=== PATIENT | female | born 1950 | race Caucasian/White ===

== ENCOUNTER → 2016-09-21 | Outpatient (CLI) | payer MEDICARE, BC ==
--- NOTE | 2016-09-21 10:48 | MM ---
Reason for exam: additional evaluation requested from prior study. Last mammogram was performed 1 year ago. History: Patient is postmenopausal and has history of breast cancer at age 60. Family history of breast cancer in maternal aunt. Lumpectomy of the left breast, July 2011. Chemotherapy, 2011. Radiation therapy of the left breast, 2011. Benign stereotactic core biopsy of the right breast, April 14, 2002. Benign stereotactic core biopsy of the right breast, June 26, 1998. Took estrogen for 6 years 6 months beginning at age 48. Took antineoplastic for 3 years. Physical Findings: Nurse did not find any significant physical abnormalities on exam. MG 3D Diag Mammo W/Cad HOMER Bilateral CC and MLO view(s) were taken. Prior study comparison: September 18, 2015, bilateral MG 3d diag mammo w/cad HOMER. September 03, 2014, bilateral MG diagnostic mammo w CAD HOMER. The breast tissue is heterogeneously dense. This may lower the sensitivity of mammography. Benign calcifications. Stable post lumpectomy changes in the left breast. No significant new findings when compared with previous films. These results were verbally communicated with the patient and result sheet given to the patient on 09/21/16. ASSESSMENT: Benign, BI-RAD 2 RECOMMENDATION: Follow-up diagnostic mammogram of both breasts in 1 year.
== END | disposition home or self-care (01) ==
LOC: RADMAMWWP 09:49
PROVIDERS: ATTEND Internal Medicine Hematology & Oncology
DX: Z08 Encounter for follow-up examination after completed treatment for malignant neoplasm (principal); Z85.3 Personal history of malignant neoplasm of breast
CPT/HCPCS: G0204; G0279

== ENCOUNTER → 2017-09-01 | Outpatient (CLI) | payer MEDICARE, BC ==
--- NOTE | 2017-09-01 10:12 | MM ---
Reason for exam: clinical finding. Last mammogram was performed 11 months ago. History: Patient is postmenopausal and has history of breast cancer at age 60. Family history of breast cancer in maternal aunt. Lumpectomy of the left breast, July 2011. Chemotherapy, 2011. Radiation therapy of the left breast, 2011. Benign stereotactic core biopsy of the right breast, April 14, 2002. Benign stereotactic core biopsy of the right breast, June 26, 1998. Took estrogen for 6 years 6 months beginning at age 48. Took antineoplastic for 3 years. Physical Findings: Nurse Summary: 1cm nodule in the right breast at 11-12 o'clock (nurse kp). MG 3D Diag Mammo W/Cad HOMER Bilateral CC and MLO view(s) were taken. Prior study comparison: September 21, 2016, bilateral MG 3d diag mammo w/cad HOMER. September 18, 2015, bilateral MG 3d diag mammo w/cad HOMER. The breast tissue is heterogeneously dense. This may lower the sensitivity of mammography. Focal asymmetry with increasing calcifications in the right breast retroareolar position. Post operative changes in the left breast is stable. These results were verbally communicated with the patient and result sheet given to the patient on 09/01/17. ASSESSMENT: Incomplete: need additional imaging evaluation, BI-RAD 0 RECOMMENDATION: Ultrasound of the right breast. Manage patient on a clinical basis.
--- NOTE | 2017-09-01 10:14 | USB ---
Reason for exam: additional evaluation requested from abnormal screening. History: Patient is postmenopausal and has history of breast cancer at age 60. Family history of breast cancer in maternal aunt. Lumpectomy of the left breast, July 2011. Chemotherapy, 2011. Radiation therapy of the left breast, 2011. Benign stereotactic core biopsy of the right breast, April 14, 2002. Benign stereotactic core biopsy of the right breast, June 26, 1998. Took estrogen for 6 years 6 months beginning at age 48. Took antineoplastic for 3 years. US Breast Limited RT Right limited breast ultrasound including focal area of concern, retroareolar and axilla demonstrates a 1.6 x 1.0 x 1.3cm irregular, hypoechoic lesion at 12 o'clock with calcifications noted. These results were verbally communicated with the patient and result sheet given to the patient on 09/01/17. ASSESSMENT: Suspicious, BI-RAD 4 RECOMMENDATION: Ultrasound core biopsy of the right breast. Called Dr. House with mammographic findings and has scheduled an appointment for the patient for 09/06/17 at 2:[address] Ortega. PRELIMINARY REPORT CALLED AND FAXED TO DR. ORTEGA ON 09/01/17.
== END | disposition home or self-care (01) ==
LOC: RADMAMWWP 07:44
PROVIDERS: ATTEND Internal Medicine Hematology & Oncology
DX: N64.52 Nipple discharge (principal); N63.10 Unspecified lump in the right breast, unspecified quadrant; N63.20 Unspecified lump in the left breast, unspecified quadrant; R92.8 Other abnormal and inconclusive findings on diagnostic imaging of breast; Z85.3 Personal history of malignant neoplasm of breast
CPT/HCPCS: 77066; 76642; G0279; 77062

== ENCOUNTER → 2017-09-14 | Day surgery (SDC) | payer MEDICARE, BC ==
[2017-09-14 08:02] VITALS: RESP 16; TEMP 98.3; BMI 23.3
[2017-09-14 09:01] VITALS: BP 134/68; PULSE 60
--- NOTE | 2017-09-14 09:42 | USB ---
EXAMINATION TYPE: US biopsy breast VAD RT, MG diagnostic mammo RT wo CAD DATE OF EXAM: 09/14/2017 CLINICAL HISTORY: R92.8 Previous Abnormal mammogram. Prior abnormal ultrasound TECHNIQUE: Ultrasound guided core biopsy of right breast with clip placement and follow-up two-view mammogram. COMPARISON: Right breast ultrasound and 3-D diagnostic mammogram workup September 01, 2017 and older studies. FINDINGS: The procedure of ultrasound guided core biopsy was explained to the patient. Benefits, alternatives, and risks were discussed. An informed consent was then obtained. The patient was placed in supine positioning for imaging and for the procedure. Preprocedure scanning redemonstrates some vague lobulated hypoechoic area measuring just under 2 cm long axis zone A 12:00 position right breast just below skin surface. The overlying skin was prepped and draped in usual sterile fashion. Lidocaine buffered with bicarbonate was used as anesthetic into the skin and subcutaneous tissue up to area of concern in the right breast. Under ultrasound guidance, a 12-gauge vacuum assisted biopsy gun device was used to obtain 3 core samples. Following this, a biopsy clip was left in lesion. The patient tolerated the procedure well without any immediate complication. The patient was kept in the radiology department for short stay after the procedure and then discharged home in stable condition. Postprocedure mammogram successful deployment of clip corresponding to level of prior palpable abnormality or BB. IMPRESSION: Successful, uncomplicated ultrasound guided core biopsy of area of concern in the right breast, full pathology results to follow. Intermediate index of suspicion noted at time of procedure. Pathology Results: Malignant BREAST, RIGHT, ULTRASOUND GUIDED CORE BIOPSY: Invasive poorly differentiated ductal carcinoma (Grade 3). See Surgical Pathology Cancer Case Summary. Recommendation Surgical consult of the right breast. CONOR
== END ==
LOC: RADUSWWP 07:29
PROVIDERS: ATTEND Surgery
DX: C50.911 Malignant neoplasm of unspecified site of right female breast (principal)
CPT/HCPCS: 88305; 77065; 19083; A4648; J2001

== ENCOUNTER → 2017-10-11 | Outpatient (CLI) | payer MEDICARE, BC ==
--- NOTE | 2017-10-12 10:04 | ECHOF ---
Referral Reason:C50.412 Breast Ca Z10.818 Chemo Exposure MEASUREMENTS -------- HEIGHT: 165.1 cm WEIGHT: 65.8 kg BP: RVIDd: 2.8 cm (< 3.3) IVSd: 1.1 cm (0.6 - 1.1) LVIDd: 3.5 cm (3.9 - 5.3) LVPWd: 1.4 cm (0.6 - 1.1) IVSs: 1.4 cm LVIDs: 2.1 cm LVPWs: 1.6 cm LA Diam: 3.4 cm (2.7 - 3.8) Ao Diam: 2.6 cm (2.0 - 3.7) AV Cusp: 1.9 cm (1.5 - 2.6) LA Diam: 3.7 cm (2.7 - 3.8) MV EXCURSION: 16.594 mm (> 18.000) MV EF SLOPE: 71 mm/s (70 - 150) EPSS: 0.3 cm MV E Tommy: 0.53 m/s MV DecT: 226 ms MV A Tommy: 0.78 m/s MV E/A Ratio: 0.68 RAP: 5.00 mmHg RVSP: 29.40 mmHg FINDINGS -------- Sinus rhythm. This was a technically good study. LV size, wall thickness and systolic function are normal, with an EF greater than 55%. The left huy tricular size is normal. Overall left ventricular systolic function is normal with, an EF between 5 5 - 60 %. The right ventricle is normal in size. The left atrial size is normal. The right atrial size is normal. The aortic valve is trileaflet, and appears structurally normal. No aortic stenosis or regurgitation. Mild mitral regurgitation is present. Mild tricuspid regurgitation present. There is no evidence of pulmonary hypertension. The right v entricular systolic pressure, as measured by Doppler, is 29.40mmHg. There is no pulmonic regurgitation present. The aortic root size is normal. There is no pericardial effusion. CONCLUSIONS -------- 1. LV size, wall thickness and systolic function are normal, with an EF greater than 55%. 2. The left ventricular size is normal. 3. The right ventricle is normal in size. 4. The left atrial size is normal. 5. The right atrial size is normal. 6. The aortic valve is trileaflet, and appears structurally normal. No aortic stenosis or regurgitati on. 7. Mild mitral regurgitation is present. 8. Mild tricuspid regurgitation present. 9. There is no evidence of pulmonary hypertension. 10. The right ventricular systolic pressure, as measured by Doppler, is 29.40mmHg. 11. There is no pulmonic regurgitation present. 12. The aortic root size is normal. 13. There is no pericardial effusion. HEATER ROOM HELPER: Yola Levy RDCS
== END | disposition home or self-care (01) ==
LOC: RADECHMAIN 13:54
PROVIDERS: ATTEND Internal Medicine Hematology & Oncology
DX: I08.1 Rheumatic disorders of both mitral and tricuspid valves (principal); C50.412 Malignant neoplasm of upper-outer quadrant of left female breast
CPT/HCPCS: 93306

== ENCOUNTER → 2017-12-28 | Outpatient (CLI) | payer MEDICARE, BC ==
--- NOTE | 2017-12-28 14:30 | ECHOF ---
Referral Reason:C50.111 Breast cancer Z01.818 Chemo exposure MEASUREMENTS -------- HEIGHT: 167.6 cm WEIGHT: 63.5 kg BP: 126/60 RVIDd: 3.0 cm (< 3.3) IVSd: 1.1 cm (0.6 - 1.1) LVIDd: 4.2 cm (3.9 - 5.3) LVPWd: 1.0 cm (0.6 - 1.1) IVSs: 1.5 cm LVIDs: 2.6 cm LVPWs: 1.3 cm LA Diam: 3.5 cm (2.7 - 3.8) LAESV Index (A-L): 21.33 ml/m Ao Diam: 3.3 cm (2.0 - 3.7) AV Cusp: 2.2 cm (1.5 - 2.6) MV EXCURSION: 11.388 mm (> 18.000) MV EF SLOPE: 37 mm/s (70 - 150) EPSS: 1.3 cm MV E Tommy: 0.71 m/s MV DecT: 280 ms MV A Tommy: 0.98 m/s MV E/A Ratio: 0.72 RAP: 5.00 mmHg RVSP: 24.64 mmHg FINDINGS -------- Sinus rhythm. This was a technically good study. The left ventricular size is normal. There is borderline concentric left ventricular hypertrophy. Overall left ventricular systolic function is normal with, an EF between 55 - 60 %. The right ventricle is normal in size. Normal LA size by volume 22+/-6 ml/m2. The right atrium is normal in size. The aortic valve is trileaflet and appears structurally normal. The mitral valve is normal. There is trace mitral regurgitation. Mild tricuspid regurgitation present. Right ventricular systolic pressure is normal at < 35 mmHg. Trace/mild (physiologic) pulmonic regurgitation. The aortic root size is normal. Normal inferior vena cava with normal inspiratory collapse consistent with estimated right atrial pre ssure of 5 mmHg. There is no pericardial effusion. CONCLUSIONS -------- 1. Sinus rhythm. 2. This was a technically good study. 3. The left ventricular size is normal. 4. There is borderline concentric left ventricular hypertrophy. 5. Overall left ventricular systolic function is normal with, an EF between 55 - 60 %. 6. Normal LA size by volume 22+/-6 ml/m2. 7. The aortic valve is trileaflet and appears structurally normal. 8. There is trace mitral regurgitation. 9. Mild tricuspid regurgitation present. 10. Right ventricular systolic pressure is normal at < 35 mmHg. 11. Trace/mild (physiologic) pulmonic regurgitation. 12. The aortic root size is normal. 13. Normal inferior vena cava with normal inspiratory collapse consistent with estimated right atrial pressure of 5 mmHg. 14. There is no pericardial effusion. MAT MACHINE OPERATOR: Mily Kolb RDCS
== END | disposition home or self-care (01) ==
LOC: RADECHMAIN 12:53
PROVIDERS: ATTEND Internal Medicine Hematology & Oncology
DX: C50.111 Malignant neoplasm of central portion of right female breast (principal); I07.1 Rheumatic tricuspid insufficiency; I37.1 Nonrheumatic pulmonary valve insufficiency
CPT/HCPCS: 93306

== ENCOUNTER → 2018-08-03 | Outpatient (CLI) | payer MEDICARE ==
--- NOTE | 2018-08-03 12:10 | ECHOF ---
Referral Reason:C50.111 Breast CA; Z01.818 Chemo exposure MEASUREMENTS -------- HEIGHT: 167.6 cm WEIGHT: 62.6 kg BP: RVIDd: 3.2 cm (< 3.3) IVSd: 1.0 cm (0.6 - 1.1) LVIDd: 3.9 cm (3.9 - 5.3) LVPWd: 1.3 cm (0.6 - 1.1) IVSs: 1.5 cm LVIDs: 2.3 cm LVPWs: 1.9 cm LAESV Index (A-L): 34.30 ml/m Ao Diam: 2.7 cm (2.0 - 3.7) AV Cusp: 2.1 cm (1.5 - 2.6) LA Diam: 3.5 cm (2.7 - 3.8) EPSS: 0.7 cm MV E Tommy: 0.81 m/s MV DecT: 276 ms MV A Tommy: 0.87 m/s MV E/A Ratio: 0.92 RAP: 5.00 mmHg RVSP: 30.90 mmHg MV EF SLOPE: 66.28 mm/s (70 - 150) MV EXCURSION: 1.31 cm (> 18.000) FINDINGS -------- Sinus rhythm. This was a technically good study. The left ventricular size is normal. Left ventricular wall thickness is normal. Overall left vent ricular systolic function is normal with, an EF between 55 - 60 %. The right ventricle is normal in size. LA is moderately dilated 34-39 ml/m2 The right atrial size is normal. Interatrial and interventricular septum intact. The aortic valve is trileaflet and appears structurally normal. The mitral valve leaflets are mildly thickened. Moderate mitral regurgitation is present. Moderate to severe tricuspid regurgitation present. The right ventricular systolic pressure, as alex sured by Doppler, is 30.90mmHg. There is no pulmonic regurgitation present. The aortic root size is normal. Normal inferior vena cava with normal inspiratory collapse consistent with estimated right atrial pre ssure of 5 mmHg. There is no pericardial effusion. CONCLUSIONS -------- 1. Sinus rhythm. 2. This was a technically good study. 3. The left ventricular size is normal. 4. Left ventricular wall thickness is normal. 5. Overall left ventricular systolic function is normal with, an EF between 55 - 60 %. 6. The right ventricle is normal in size. 7. LA is moderately dilated 34-39 ml/m2 8. The right atrial size is normal. 9. Interatrial and interventricular septum intact. 10. The aortic valve is trileaflet and appears structurally normal. 11. The mitral valve leaflets are mildly thickened. 12. Moderate mitral regurgitation is present. 13. Moderate to severe tricuspid regurgitation present. 14. The right ventricular systolic pressure, as measured by Doppler, is 30.90mmHg. 15. There is no pulmonic regurgitation present. 16. The aortic root size is normal. 17. Normal inferior vena cava with normal inspiratory collapse consistent with estimated right atrial pressure of 5 mmHg. 18. There is no pericardial effusion. CAN REFORMING MACHINE OPERATOR: Daniela Olguin RDCS
== END ==
LOC: RADECHMAIN 10:36
PROVIDERS: ATTEND Internal Medicine Hematology & Oncology
DX: Z01.818 Encounter for other preprocedural examination (principal); C50.111 Malignant neoplasm of central portion of right female breast; I08.1 Rheumatic disorders of both mitral and tricuspid valves
CPT/HCPCS: 93306

== ENCOUNTER → 2018-12-26 | Outpatient (CLI) | payer MEDICARE ==
--- NOTE | 2018-12-26 11:27 | MM ---
Reason for exam: additional evaluation requested from prior study. Last mammogram was performed 1 year and 3 months ago. History: Patient is postmenopausal, has history of breast cancer at age 67, and history of other cancer. Family history of breast cancer in maternal aunt. Malignant US biopsy breast VAD RT of the right breast, September 14, 2017. Lumpectomy of the left breast, July 2011. Chemotherapy, 2011. Radiation therapy of the left breast, 2011. Benign stereotactic core biopsy of the right breast, April 14, 2002. Benign stereotactic core biopsy of the right breast, June 26, 1998. Took estrogen for 6 years 6 months beginning at age 48. Took antineoplastic for 3 years. Physical Findings: Nurse did not find any significant physical abnormalities on exam. MG 3D Diag Mammo W/Cad HOMER Bilateral CC and MLO view(s) were taken. Prior study comparison: September 14, 2017, right breast MG diagnostic mammo RT wo CAD. September 01, 2017, bilateral MG 3d diag mammo w/cad HOMER. September 18, 2015, bilateral MG 3d diag mammo w/cad HOMER. The breast tissue is heterogeneously dense. This may lower the sensitivity of mammography. Benign appearing bilateral calcifications. Post surgical change bilaterally. These results were verbally communicated with the patient and result sheet given to the patient on 12/26/18. ASSESSMENT: Benign, BI-RAD 2 RECOMMENDATION: Follow-up diagnostic mammogram of both breasts in 1 year.
== END | disposition home or self-care (01) ==
LOC: RADMAMWWP 10:46
PROVIDERS: ATTEND Radiology Radiation Oncology
DX: C50.111 Malignant neoplasm of central portion of right female breast (principal); C50.412 Malignant neoplasm of upper-outer quadrant of left female breast; Z17.0 Estrogen receptor positive status [ER+]
CPT/HCPCS: 77066; G0279; 77062

== ENCOUNTER → 2020-01-12 | Outpatient (CLI) | payer MEDICARE ==
--- NOTE | 2020-01-12 14:33 | MM ---
Reason for exam: additional evaluation requested from prior study. Last mammogram was performed 1 year and 1 month ago. History: Patient is postmenopausal, has history of breast cancer at age 67, and history of other cancer. Family history of breast cancer in maternal aunt. Malignant US biopsy breast VAD RT of the right breast, September 14, 2017. Lumpectomy of the left breast, July 2011. Chemotherapy, 2011. Radiation therapy of the left breast, 2011. Benign stereotactic core biopsy of the right breast, April 14, 2002. Benign stereotactic core biopsy of the right breast, June 26, 1998. Took estrogen for 6 years 6 months beginning at age 48. Took antineoplastic for 3 years. Physical Findings: Nurse did not find any significant physical abnormalities on exam. MG 3D Diag Mammo W/Cad HOMER Bilateral CC and MLO view(s) were taken. XCCL view(s) were taken of the left breast. Prior study comparison: December 26, 2018, bilateral MG 3d diag mammo w/cad HOMER. September 14, 2017, right breast MG diagnostic mammo RT wo CAD. The breast tissue is heterogeneously dense. This may lower the sensitivity of mammography. Previous mammotome biopsy in the right breast. Bilateral breast post surgical changes. No significant new findings when compared with previous films. These results were verbally communicated with the patient and result sheet given to the patient on 01/12/20. ASSESSMENT: Benign, BI-RAD 2 RECOMMENDATION: Follow-up diagnostic mammogram of both breasts in 1 year.
== END | disposition home or self-care (01) ==
LOC: RADMAMWWP 12:47
PROVIDERS: ATTEND Internal Medicine Hematology & Oncology
DX: Z08 Encounter for follow-up examination after completed treatment for malignant neoplasm (principal); Z85.3 Personal history of malignant neoplasm of breast
CPT/HCPCS: 77066; G0279; 77062

== ENCOUNTER → 2020-09-09 | Outpatient (CLI) | payer MEDICARE ==
--- NOTE | 2020-09-09 16:32 | MR ---
EXAMINATION TYPE: MR hip LT wo con DATE OF EXAM: 09/09/2020 COMPARISON: 08/29/2020 HISTORY: Left hip and thigh pain with limited movement for 8-10 months from falling down stairs. Standard multiplanar, multisequence MRI departmental protocol Multiplanar, multisequence images of the left hip were acquired. Diffusion weighted imaging was perfo rmed. FINDINGS: Tendons: There is edema at the gluteal tendon attachment on the left greater trochanter, consistent with troch anteric bursitis. The remainder of the tendon attachments are unremarkable. Hip joint: There are full-thickness articular cartilage defects of the left hip joint with subchondral marrow ed miguel angel and cystic formation. Labrum is not well evaluated. Bone marrow: Susceptibility artifact from the right hip prosthesis limits evaluation. Muscle: Muscle signal is grossly unremarkable. Visceral pelvis: No definite abnormality of the visceral pelvis. IMPRESSION: 1. Full-thickness articular cartilage defects of the left hip joint. 2. Left trochanteric bursitis. 3. Status post right hip hardware creating susceptibility artifact and limiting evaluation.
== END | disposition home or self-care (01) ==
LOC: RADMRIMAIN 14:41
PROVIDERS: ATTEND Orthopaedic Surgery
DX: M24.152 Other articular cartilage disorders, left hip (principal); M70.62 Trochanteric bursitis, left hip

== ENCOUNTER → 2020-12-09 | Outpatient (CLI) | payer MEDICARE | END | disposition home or self-care (01) | LOC: LABPAT 14:05 | PROVIDERS: ATTEND Orthopaedic Surgery | DX: Z01.812 Encounter for preprocedural laboratory examination (principal); M16.12 Unilateral primary osteoarthritis, left hip; Z22.322 Carrier or suspected carrier of Methicillin resistant Staphylococcus aureus | CPT/HCPCS: 87070 ==

== ENCOUNTER 2020-12-17 06:40 | Day surgery (SDC) | payer MEDICARE ==
[2020-12-12 10:36] VITALS: BMI 21.7
--- NOTE | 2020-12-16 12:34 | HP ---
HISTORY AND PHYSICAL CHIEF COMPLAINT: Left hip pain. HISTORY OF PRESENT ILLNESS: The patient is a 70-year-old retired female who presents with progressive left hip pain for the past 6 months. She notes catching and locking. She had a difficult time with weightbearing in addition to getting up from a seated position. She has tried medications without much relief. She notes it bothers her daily and significantly limits her function and activity level. PAST MEDICAL HISTORY: Significant for ulcerative colitis, arthritis, gastroesophageal reflux disease, and breast cancer. PAST SURGICAL HISTORY: Significant for hysterectomy, right total hip arthroplasty, and bowel surgery. CURRENT MEDICATIONS: Asacol, omeprazole. ALLERGIES: SHE HAS ALLERGIES TO ADHESIVE TAPE AND BENADRYL. FAMILY HISTORY: Significant for heart disease. SOCIAL HISTORY: Negative for current tobacco or alcohol use. REVIEW OF SYSTEMS: Sixteen-point review of systems otherwise reviewed and is noncontributory. PHYSICAL EXAMINATION: On examination, the patient is approximately 5 foot 6, 135 pounds of ectomorphic habitus. HEENT exam is nonfocal. NECK is supple. On examination of her left HIP, she has passive motion, flexion 85 degrees, external rotation with the hip flexed 60 degrees, internal rotation 0 degrees with pain. Clinically, she has 1 cm shortening left lower extremity compared to the right. She does have an antalgic gait pattern. Her distal neurovascular exam appears intact in the left lower extremity. AP of the pelvis obtained in the office shows moderate left hip osteoarthrosis in addition to previous right total hip arthroplasty. MRI of the left hip from 09/09/2020 shows full-thickness cartilage defect involving the femoral head. IMPRESSION: Left hip moderate osteoarthrosis with full-thickness cartilage defect of the femoral head. RECOMMENDATIONS: I talked to the patient at length regarding her condition along with treatment options. At this point, she is quite limited because of pain related to her osteoarthrosis despite previous conservative measures. After thorough discussion, she opts to proceed with surgery. We will plan to proceed with left total hip arthroplasty utilizing a direct anterior approach. Risks and benefits were discussed at length in layman's terms. We will institute DVT prophylaxis postoperatively. MMODL / IJN: [id number] /
[~2020-12-17 06:40] MED LIST: ACETAMINOPHEN TAB 500 MG TAB PO PRN; LIDOCAINE 1% (10MG/ML) FOR IV START INTRADERMA PRN; MELOXICAM 7.5 MG TAB PO PRN; ONDANSETRON 4 MG/2 ML VIAL IVP ONE; TRANEXAMIC ACID 1,000 MG in SODIUM CHLORIDE 0.9% 100 ML IVPB PRN
[2020-12-17] MEDS: LACTATED RINGERS 1,000 ML IV SCH (07:22)
[2020-12-17] MEDS ORDERED: DEXAMETHASONE SOD PHOSPHATE 4 MG/ML 1 ML VIAL IV ONE (07:28)
[2020-12-17] MEDS ORDERED: TRANEXAMIC ACID 1,000 MG/10 ML VIAL ONE (07:43)
[2020-12-17] MEDS ORDERED: fentaNYL (PF) 50 MCG/ML 2 ML AMP ONE (07:43)
[2020-12-17] MEDS ORDERED: ePHEDrine SULFATE/0.9% NACL/PF 50 MG/5 ML SYRINGE IV ONE (07:43)
[2020-12-17] MEDS ORDERED: PROPOFOL 10 MG/ML 20 ML VIAL IV ONE (07:43)
[2020-12-17] MEDS ORDERED: SODIUM CHLORIDE 0.9% 100 ML BAG ONE (07:43)
[2020-12-17] MEDS ORDERED: KETAMINE 10 MG/ML 20 ML VIAL ONE (07:43)
[2020-12-17] MEDS ORDERED: MIDAZOLAM 2 MG/2 ML VIAL ONE (07:43)
[2020-12-17] MEDS ORDERED: ceFAZolin 1,000 MG in SODIUM CHLORIDE 0.9% 1,000 ML IRRIGATION ONE (08:23)
[2020-12-17] MEDS ORDERED: LACTATED RINGERS 1,000 ML IV ONE (09:29)
[2020-12-17] MEDS ORDERED: ONDANSETRON 4 MG/2 ML VIAL IVP PRN (09:34)
[2020-12-17] MEDS ORDERED: MAGNESIUM HYDROXIDE 2,400 MG/10 ML CUP PO PRN (09:34)
[2020-12-17] MEDS ORDERED: ACETAMINOPHEN TAB 325 MG TAB PO PRN (09:34)
[2020-12-17] MEDS ORDERED: HYDROmorphone 0.5 MG/0.5 ML SYRINGE IVP PRN (09:34)
[2020-12-17] MEDS ORDERED: HYDROcodone/APAP 5-325MG 1 EACH TAB PO PRN (09:34)
[2020-12-17] MEDS ORDERED: NALOXONE 0.4 MG/ML 1 ML VIAL IV PRN (09:34)
--- NOTE | 2020-12-17 09:45 | XR ---
Fluoroscopy INDICATION: Pain FINDINGS: Fluoroscopy time: 27.8 seconds. Images obtained: 6. IMPRESSIONS: 1. Documentation of fluoroscopy.
--- NOTE | 2020-12-17 09:55 | P.OP ---
Date of Procedure: 12/17/20 Preoperative Diagnosis: Left hip severe osteoarthrosis Postoperative Diagnosis: Same Procedure(s) Performed: Left total hip arthroplastypress-fitanterior approach Implants: Depuy Corail size 11 collared standard press-fit femoral stem, 52 mm [place] acetabular shell with neutral polyethylene liner, 36+1.5 cobalt chrome femoral head. Anesthesia: spinal Surgeon: Husam Brennan Nanotechnology Technician #1: Luis Holliday Estimated Blood Loss (ml): 100 Pathology: other (Femoral head) Condition: stable Disposition: PACU Indications for Procedure: The patient's a 70-year-old female presents with progressive left hip pain secondary to osteoarthrosis despite conservative measures. MRI report showed evidence of full-thickness chondral defects involving the femoral head. A discussion of the risks and benefits of operative intervention versus continued conservative measures was made with patient To proceed with surgery. Operative risks to include infection, neurovascular injury, development of blood clots, fracture, likely discrepancy, instability and possible need for subsequent procedures was discussed. Informed consent was obtained. Operative Findings: As below Description of Procedure: The patient was brought to the operating room, and after induction of spinal anesthesia was placed supine on the Lacy table. Positioning was checked with fluoroscopy. The left hip was then prepped and draped in a normal fashion. A 12 cm incision was then made starting 2 fingerbreadths distal and 3 finger breaths posterior to the ASIS in line with the proximal femur. The skin was incised sharply. Subcutaneous tissues were divided sharply. Electrocautery was used for hemostasis. The fascia was split in line with skin incision. The interval between the sartorius and tensor fascia mitzi was then bluntly developed. The posterior fascia was opened with electrocautery. The lateral circumflex vessels were identified and cauterized prior to sectioning. A retractor was placed along the superior femoral neck as well as the anterior acetabular rim. A wide capsulotomy was performed. The neck cut was then made at a 45 angle to the shaft approximately 1 1/2 cm above the level of the lesser trochanter. The head was extracted. Attention was then paid towards preparing the acetabular. Anterior and posterior retractors were placed. The remaining capsular labral tissue sharply debrided clearly defining the acetabular margins. I began reaming with a 45 mm reamer taking care to initially medialize then reaming at 45 of abduction and 20 of anteversion. Sequential reaming is performed up to 51 mm. A trial 52 mm acetabular shell was inserted in the same orientation and was fully seated. There was good rim fit and stability. Positioning was checked with fluoroscopy. The final 52 mm acetabular shell was inserted again at 45 of abduction and 20 of anteversion. This was fully seated. There was good rim fit and stability. Again fluoroscopy was used to check the adequacy of placement. A neutral polyethylene liner was gently impacted. Care was taken to avoid any soft tissue interposition. Pulsatile lavage was utilized. Attention was then paid towards preparing the proximal femur. The central region was cleared of soft tissue. A canal finder was used to find the femoral canal. Sequential broaching was performed up to size 11 taking care to lateralize proximally. A calcar mill was used to fashion the medial calcar. There was good rotational stability. A standard neck along with a 36 mm +1.5 head was placed. The hip was gently redu [place]. Fluoroscopy was used to check the adequacy of positioning along with leg lengths. I felt both were good. The hip was gently dislocated. The trial components were removed. The final size 11 collared standard press-fit femoral stem was inserted parallel to the posterior cortex. This was fully seated and there was good rotational stability. A 36 mm +1.5 head was placed. This was gently impacted. The hip was then gently reduced. Final fluoroscopic view showed adequate placement implant along with taoism of leg length. Stability was checked with 80 of external rotation and 60 of extension of the left hip. The wound was irrigated with sterile lavage. The fascia was closed with running 0 Vicryl suture. There was minimal drainage therefore a deep drain was not placed. The second dose of IV TXA was given. The subcutaneous tissues were reapproximated interrupted 2-0 Vicryl sutures. The skin was reapproximated with 3-0 subcuticular strata fix suture. Skin tape and adhesive was applied. A sterile dressing was applied. The patient was then awoken from sedation and transferred to recovery room in good condition. Blood loss was estimated at 100 mL. No complications were incurred. Sponge and needle counts were correct at the end of the case. Luis NDIAYE assisted during the major components is case to include exposure, bone resection, implantation, and closure.
[2020-12-17] MEDS: HYDROmorphone 0.5 MG/0.5 ML SYRINGE IVP PRN ×2 (10:09→11:13)
--- NOTE | 2020-12-17 10:20 | XR ---
EXAMINATION TYPE: XR Hip Limited LT DATE OF EXAM: 12/17/2020 COMPARISON: None HISTORY: Post hip surgery TECHNIQUE: AP left hip FINDINGS: There is placement of a left hip prosthesis. No acute fractures are evident. Postsurgical s oft tissue changes are evident. IMPRESSION: 1. No acute fracture post left hip replacement
[2020-12-17] MEDS ORDERED: PROMETHAZINE INJ 25 MG/ML 1 ML VIAL IVPB ONE (11:14)
--- NOTE | 2020-12-17 12:58 | FL ---
Fluoroscopy INDICATION: Pain FINDINGS: Fluoroscopy time: 25 seconds. Images obtained: 0. IMPRESSIONS: 1. Documentation of fluoroscopy.
[2020-12-17] MEDS: HYDROcodone/APAP 7.5-325MG 1 EACH TAB PO PRN ×2 (14:12→20:11)
--- NOTE | 2020-12-17 19:49 | CONS ---
CONSULTATION DATE OF SERVICE: 12/17/2020. REASON FOR CONSULTATION: Advice regarding hyperlipidemia, GERD, and multiple medical issues, requested by Dr. Brennan. HISTORY OF PRESENT ILLNESS: This 70-year-old woman with a past medical history of GERD, hyperlipidemia, history of pneumonia, history of breast cancer, being followed by Dr. Veloz in the outpatient setting, underwent left total hip joint arthroplasty. The patient tolerated the procedure well. There is no history of any fever, rigors or chills. No history of headache, loss of consciousness, seizures at this time. PAST MEDICAL HISTORY: GERD, hyperlipidemia, history of pneumonia. MEDICATIONS: Home medications are Prilosec, multivitamins, Colace, vitamin B12, vitamin D3, biotin. ALLERGIES: BENADRYL, ADHESIVE TAPES AND TOPICAL ANTISEPTIC. FAMILY HISTORY: No history of heart disease or strokes in the family. SOCIAL HISTORY: No history of smoking. No history of alcohol intake. REVIEW OF SYSTEMS: ENT: No diminished hearing. No diminished vision. CARDIOVASCULAR SYSTEM: No angina, palpitations. RESPIRATORY SYSTEM: No cough, hemoptysis. GI: As mentioned earlier. : No dysuria. NERVOUS SYSTEM: No numbness, weakness. ALLERGY/IMMUNOLOGY: No asthma or hay fever. MUSCULOSKELETAL: As mentioned earlier. HEMATOLOGY/ONCOLOGY: As mentioned earlier. ENDOCRINE: No history of diabetes, hypothyroidism. CONSTITUTIONAL: As mentioned earlier. DERMATOLOGY: Negative. RHEUMATOLOGY: Negative. PSYCHIATRY: Negative. PHYSICAL EXAMINATION: Patient alert and oriented x3. Pulse 78, blood pressure 122/53, respiration 20, temperature 97.7, pulse ox 99% on room air. HEENT: Conjunctivae normal. Oral mucosa moist. NECK: No jugular venous distention. No carotid bruit. No lymph node enlargement. CARDIOVASCULAR: S1, S2 muffled. No S3. No S4. RESPIRATION: Breath sounds diminished at the bases. No rhonchi. ABDOMEN: Soft, nontender. LEGS: Status post left hip arthroplasty. NERVOUS SYSTEM: Higher functions as mentioned earlier. Moves all 4 limbs. No focal motor or sensory deficit. LYMPHATICS: No lymph node palpable in neck, axillae or groin. SKIN: No ulcer, rash, bleeding. JOINTS: No active deforming arthropathy. LABS: COVID-19 negative. Preoperative labs are CBC within normal limits. Cholesterol is 210 on the the preoperative labs. ASSESSMENT: 1. Status post left total hip joint arthroplasty. 2. Gastroesophageal reflux disease. 3. Hyperlipidemia. 4. History of pneumonia. 5. History of breast cancer. 6. History of constipation. 7. History of ulcerative colitis. 8. History of hysterectomy. 9. FULL CODE. RECOMMENDATIONS AND DISCUSSION: In this 70-year-old woman who presented with multiple medical issues, at this time I recommend to continue current medications. Resume the home medications. DVT prophylaxis. Incentive spirometry. Will follow the patient closely. Patient may be asked to follow up with Dr. Veloz after discharge. Thank you, Dr. Brennan, for letting us participate in the care of this patient. MMODL / IJN: [id number] /
[2020-12-17] MEDS ORDERED: SENNOSIDES-DOCUSATE SODIUM 1 EACH TAB PO SCH (21:00)
[2020-12-17 23:49] VITALS: RESP 18
[2020-12-18 07:06] LABS: Basophils % (A) 0 %; Eosinophils % (A) 0 %; HCT 24.4 % (34.0-46.0); HGB 8.1 gm/dL (11.4-16.0); Lymphocytes # (A) 1.2 k/uL (1.0-4.8); Lymphocytes % (A) 15 %; MCH 29.5 pg (25.0-35.0); MCHC 33.1 g/dL (31.0-37.0); MCV 89.2 fL (80.0-100.0); Mean Platelet Volume 7.9; Monocytes # (A) 0.5 k/uL (0-1.0); Monocytes % (A) 6 %; Neutrophils # (A) 6.4 k/uL (1.3-7.7); Neutrophils % (A) 77 %; Platelet Count 225 k/uL (150-450); RBC 2.74 m/uL (3.80-5.40); RDW 13.1 % (11.5-15.5); WBC 8.2 k/uL (3.8-10.6)
[2020-12-18] MEDS ORDERED: PANTOPRAZOLE 40 MG TABLET PO SCH (07:30)
[2020-12-18] MEDS: HYDROcodone/APAP 7.5-325MG 1 EACH TAB PO PRN ×2 (08:05→12:46)
[2020-12-18 08:07] VITALS: BP 108/54; PULSE 82; TEMP 98.4
[2020-12-18] MEDS: LACTATED RINGERS 1,000 ML IV SCH (08:37)
[2020-12-18] MEDS ORDERED: NON FORMULARY DRUG (Biotin [Biotin] 10,000 MCG Capsule) PO SCH (09:00)
[2020-12-18] MEDS ORDERED: MULTIVITAMINS, THERA 1 EACH TAB PO SCH (09:00)
[2020-12-18] MEDS ORDERED: RIVAROXABAN 10 MG TAB PO SCH (09:00)
[2020-12-18] MEDS ORDERED: CYANOCOBALAMIN 500 MCG TAB PO SCH (09:00)
[2020-12-18] MEDS ORDERED: CHOLECALCIFEROL 25 MCG (1000 IU) TABLET PO SCH (09:00)
--- NOTE | 2020-12-18 09:29 | P.PN ---
Subjective Progress Note Date: 12/18/20 Principal diagnosis: status post direct anterior left total hip arthroplasty Patient evaluated at bedside, she is resting in her hospital bed. Patient has a 30 ambulate well with physical therapy today. Her pain is well-controlled. She did have a little bit of nausea this morning which has improved. Her vitals remained stable. Patient denies any headaches, lightheadedness, chest pain, shortness of breath. Objective - Vital Signs Vital signs: Vital Signs Temp 98.4 F 12/18/20 08:00 Pulse 82 12/18/20 08:00 Resp 18 12/18/20 08:00 BP 108/54 12/18/20 08:00 Pulse Ox 96 12/18/20 08:00 Intake & Output 12/17/20 12/18/20 12/18/20 18:59 06:59 18:59 Intake Total 1451 Output Total 100 Balance 1351 Weight 61.6 kg Intake: IV 1451 Output: Estimated Blood Loss 100 Other: Voiding Method Toilet # Voids 1 4 # Bowel Movements 0 - Exam Left lower extremity: Incision is clean, dry, and intact. There is minimal soft tissue swelling and ecchymosis surrounding the medial and lateral aspects of the incision. Calf is soft, no tenderness with palpation. Plantar flexion, dorsiflexion, EHL, FHL are intact. Sensory exam to light touch throughout the extremity is intact, dorsal pedis pulses 2+. - Labs CBC & Chem 7: 12/18/20 05:56 Labs: Abnormal Lab Results - Last 24 Hours (Table) 12/18/20 Range/Units 05:56 RBC 2.74 L (3.80-5.40) m/uL Hgb 8.1 L (11.4-16.0) gm/dL Hct 24.4 L (34.0-46.0) % Assessment and Plan Assessment: Postoperative day #1 status post left anterior left total hip arthroplasty Plan: pain control, plan for discharge home on oral medication DVT prophylaxis, Eliquis 2.5 mg twice a day for 30 days Ferrous sulfate 325 mg twice a day for 1 month Wound care instructions were discussed with patient, this to include showering Icing and elevating techniques were discussed Home health To discharge Medical recommendations Discharge planning: Plan for discharge home today Time with Patient: Less than 30
--- NOTE | 2020-12-18 12:01 | P.DS ---
Providers Date of admission: 12/17/2020 Expected date of discharge: 12/18/20 Attending physician: Husam Brennan Consults: 12/17/20 09:34 Consult Physician Routine Consulting Provider: Gama Mi Consult Reason/Comments: medical management Do you want consulting provider notified?: Yes Primary care physician: Danielle Veloz Hospital Course: Date of admission: 12/17/2020 Date of discharge: 12/18/2020 Admission diagnosis: Status post direct anterior left total hip arthroplasty Discharge diagnosis: Same Attending physician: Dr. Brennan Surgical procedures: Direct anterior left total hip arthroplasty Brief history: Patient is a 70-year-old female with a history of progressive primary left hip osteoarthritis. At this point patient has failed conservative treatment measures and has opted to proceed with a elective left direct anterior total hip arthroplasty. Hospital course: Details of patient's surgery can be found in operative report. Patient tolerated the procedure well and was subsequently transported to orthopedic floor. Patient's orthopeidc and medical care was provided daily. Patient had daily laboratory tests performed for evaluation of overall blood cou nts. Patient had daily physical therapy to include strengthening range of motion as well as education with walker ambulation. Patient was treated with Xarelto for their postoperative DVT prophylaxis during their inpatient stay. Patient was noted to have a relatively uneventful postoperative course. Patient reported satisfactory pain control with oral pain medications by postoperative day 0. Patient showed satisfactory progress with physical therapy. Patient moved steadily through the program and had no difficulty meeting the goals by postoperative day 1. Given patient's otherwise satisfactory course and having met physical therapy goals, plan is to discharge patient home on postoperative day 1. Discharge condition/disposition: Patient will be discharged home in stable condition. Discharge medications: Instructions are given on resumption of patient's normal daily medications per primary care recommendation, in addition patient will be prescribed Moseley 7.5 mg/25 mg, Colace 100 mg, Eliquis 2.5 mg, ferrous sulfate 325 mg. Discharge instructions: 1. Wound care and infection precautions, keep incision dry and covered while showering, no lotions, creams, moisturizers. No soaking, tubs, pools, hottubs. Do not scrub over the incision. 2. Weight-bear as tolerated with walker / cane until follow-up. 3. Ice and elevate when necessary. Do not exceed 20 minutes per hour with ice pack. 4. Utilize compression sleeve until seen at first follow up appointment. 5. Visiting nursing care. 6. Home physical therapy. 7. Pain meds and anticoagulants per prescription. 8. Pain medication has potential to cause constipation. Increase oral fluid and fiber intake. Contact primary care provider if you have not had a bowel movement within 48 hours after discharge 9. No anti-inflammatory medication until discussed at first post operative visit, this including Motrin, Aleve, Mobic, Diclofenac. 10. Follow up in office at 2 weeks postop with Destin Dawson PA-C/Luis Trevino 11. Follow up with your primary care doctor 7-10 days after discharge. 12. Contact [facility] with any questions, . Procedures: Direct anterior left total hip arthroplasty Patient Condition at Discharge: Good Plan - Discharge Summary Discharge Rx Participant: Yes New Discharge Prescriptions: New Apixaban [Eliquis] 2.5 mg PO BID #60 tab HYDROcodone/APAP 7.5-325MG [Moseley 7.5] 1 each PO Q6HR PRN #28 tab PRN Reason: Pain Docusate [Colace] 100 mg PO DAILY #30 cap Ferrous Sulfate [Feosol] 325 mg PO BID #60 tab No Action Omeprazole [PriLOSEC] 20 mg PO DAILY Multivitamins, Thera [Multivitamin (formulary)] 1 tab PO DAILY Biotin 10,000 mcg PO DAILY Docusate [Colace] 100 mg PO HS Cyanocobalamin (Vitamin B-12) [Vitamin B-12] 1,000 mcg PO DAILY Cholecalciferol (Vitamin D3) [Vitamin D3 (125 MCG = 5,000 IU)] 125 mcg PO DAILY Discharge Medication List Omeprazole [PriLOSEC] 20 mg PO DAILY 09/07/17 [History] Biotin 10,000 mcg PO DAILY 12/12/20 [History] Cholecalciferol (Vitamin D3) [Vitamin D3 (125 MCG = 5,000 IU)] 125 mcg PO DAILY 12/12/20 [History] Cyanocobalamin (Vitamin B-12) [Vitamin B-12] 1,000 mcg PO DAILY 12/12/20 [History] Docusate [Colace] 100 mg PO HS 12/12/20 [History] Multivitamins, Thera [Multivitamin (formulary)] 1 tab PO DAILY 12/12/20 [History] Apixaban [Eliquis] 2.5 mg PO BID #60 tab 12/18/20 [Rx] Docusate [Colace] 100 mg PO DAILY #30 cap 12/18/20 [Rx] Ferrous Sulfate [Feosol] 325 mg PO BID #60 tab 12/18/20 [Rx] HYDROcodone/APAP 7.5-325MG [Moseley 7.5] 1 each PO Q6HR PRN #28 tab 12/18/20 [Rx] Follow up Appointment(s)/Referral(s): Luis Holliday PAC [PHYSICIAN [facility] BUSINESS DEVELOPMENT OFFICER] - 01/02/21 9:00 am Danielle Veloz MD [Primary Care Provider] - 1 Week Jeramy Dawson PAC [PHYSICIAN [facility] BUSINESS DEVELOPMENT OFFICER] - 2 Weeks Ambulatory/Diagnostic Orders: Complete Blood Count w/diff [LAB.AMB] Location: None Selected Activity/Diet/Wound Care/Special Instructions: Orthopedic Discharge Instructions: 1. Wound care and infection precautions, keep incision dry and covered while showering, no lotions, creams, moisturizers. No soaking, pools, hot tubs. Do not scrub over incision. 2. Weight-bear as tolerated with walker / cane until follow-up. 3. Ice and elevate when necessary. Do not exceed 20 minutes per hour with ice pack. 4. Utilize compression sleeve until seen at first follow up appointment. 5. Pain meds and anticoagulants per prescription. 6. Pain medication has potential to cause constipation. Increase oral fluid and fiber intake. Contact primary care provider if you have not had a bowel movement within 48 hours after discharge. 7. No anti-inflammatory medication until discussed at first post operative visit, this including Motrin, Aleve, Mobic, Diclofenac. 8. Follow up in office at 2 weeks postop with Destin Dawson PA-C/Luis Holliday PA-C 9. Follow up with your primary care doctor 7-10 days after discharge. 10. Contact [facility] with any questions, . Discharge Disposition: HOME WITH HOME HEALTH SERVICES
--- NOTE | 2020-12-18 18:38 | P.PN ---
Subjective Progress Note Date: 12/18/20 History of present illness: This is a 70 year old woman with a past medical history of GERD, hyperlipidemia, history of pneumonia, history of breast cancer, who follows with Dr Veloz in the outpatient setting. Patient has had progressive left hip pain over the last 6 months, and has difficulty with weightbearing, and is starting to affect her daily life. Patient has tried medications without success. Patient underwent a left total hip arthroplasty with Dr Brennan. Patient tolerated the procedure well. There is no history of rigors, fever, or chills. No history of headache, loss of consciousness, seizures at this time. 12/18/2020 Patient is evaluated today sitting up in the chair. She is post op day #1 left total hip. She stated this morning she had a bit of nausea which had subsided after she ate breakfast. She worked with PT/OT and is anticipated to discharge today with home care, PT. Patient states that pain is well controlled at this time. She denies any nausea or vomiting. She has not had a BM yet today, however she states she is passing gas and urinating without difficulty. She denies CP, palpitations, cough, or SOB. hgb today is 8.1, which was an expected finding due to surgery, per ortho. Plan is for is discharge on oral ferrous sulfate. REVIEW OF SYSTEMS: CONSTITUTIONAL: No fever, no malaise, no fatigue. HEENT: No recent visual problems or hearing problems. Denied any sore throat. CARDIOVASCULAR: No chest pain, orthopnea, PND, no palpitations, no syncope. PULMONARY: No shortness of breath, no cough, no hemoptysis. GASTROINTESTINAL: Denies emesis or diarrhea. Reports mild nausea NEUROLOGICAL: No headaches, no weakness, no numbness. GENITOURINARY: Denies any burning micturition, frequency, or urgency. MUSCULOSKELETAL: Reports mild left hip pain, 2/10 controlled with norco. Extremities: plus 2 bilateral dorsalis pedis. mild non pitting edema bilaterally PHYSICAL EXAMINATION: GENERAL: The patient is alert and oriented x3, not in any acute distress. Well developed, well nourished. HEENT: Pupils are round and equally reacting to light. EOMI. No scleral icterus. No conjunctival pallor. Normocephalic, atraumatic. No pharyngeal erythema. No thyromegaly. CARDIOVASCULAR: S1 and S2 present. No murmurs, rubs, or gallops. PULMONARY: Chest is clear to auscultation, no wheezing or crackles. ABDOMEN: Soft no significant tenderness sluggish bowel sounds I EXTREMITIES: No cyanosis, clubbing, or pedal edema. NEUROLOGICAL: Gross neurological examination did not reveal any focal deficits. SKIN: No rashes. Assessment and Plan Assessment Osteoarthritis; debilitating Direct anterior left total hip arthroplasty POD #2 Acute blood loss anemia, expected surgical outcome Gastroesophageal Reflux Disease Hyperlipidemia History of pneumonia History of breast cancer History of constipation History of ulcerative colitis History of hysterectomy Full Code DVT Prophylaxis: Eliquis 2.5 mg PO BID for 30 days GI prophylaxis: prilosec Plan Pt is medically cleared for discharge. She is being discharged on ferrous sulfate 325 mg po bid, repeat CBC in 2 days per surgical services. Continue to work with PT, continue with IS. Continue all other home medications. Thank you for this consulation. Thank you for allowing us to participate in the care of this patient. Objective - Vital Signs Vital signs: Vital Signs Temp 98.4 F 12/18/20 08:00 Pulse 82 12/18/20 08:00 Resp 18 12/18/20 08:00 BP 108/54 12/18/20 08:00 Pulse Ox 96 12/18/20 08:00 Intake & Output 12/17/20 12/18/20 12/18/20 18:59 06:59 18:59 Intake Total 1451 Output Total 100 Balance 1351 Weight 61.6 kg Intake: IV 1451 Output: Estimated Blood Loss 100 Other: Voiding Method Toilet # Voids 1 4 # Bowel Movements 0 - Labs CBC & Chem 7: 12/18/20 05:56 Labs: Abnormal Lab Results - Last 24 Hours (Table) 12/18/20 Range/Units 05:56 RBC 2.74 L (3.80-5.40) m/uL Hgb 8.1 L (11.4-16.0) gm/dL Hct 24.4 L (34.0-46.0) %
== END 2020-12-18 13:18 | disposition home health service (06) ==
LOC: OR 06:40 → 4SSUR 12:14 → OR 12-18 13:18
PROVIDERS: ATTEND Orthopaedic Surgery
DX: M16.12 Unilateral primary osteoarthritis, left hip (principal); Z20.822 Contact with and (suspected) exposure to COVID-19; Z96.641 Presence of right artificial hip joint; Z88.8 Allergy status to other drugs, medicaments and biological substances; Z91.048 Other nonmedicinal substance allergy status; K21.9 Gastro-esophageal reflux disease without esophagitis
CPT/HCPCS: 97161; 86900; 86901; 88305; 85025; 86850; 88311; 87635; 73501; 27130; C1776; J2250; J1100; J2550; J0690 ×2; J2405; J3010; J2704; J1170

== ENCOUNTER → 2021-01-13 | Outpatient (CLI) | payer MEDICARE ==
--- NOTE | 2021-01-13 11:36 | MM ---
Reason for exam: additional evaluation requested from prior study. Last mammogram was performed 1 year ago. History: Patient is postmenopausal, has history of breast cancer at age 67, and history of other cancer. Family history of breast cancer in maternal aunt. Malignant US biopsy breast VAD RT of the right breast, September 14, 2017. Lumpectomy of the left breast, July 2011. Chemotherapy, 2011. Radiation therapy of the left breast, 2011. Benign stereotactic core biopsy of the right breast, April 14, 2002. Benign stereotactic core biopsy of the right breast, June 26, 1998. Took estrogen for 6 years 6 months beginning at age 48. Took antineoplastic for 3 years. Physical Findings: Nurse did not find any significant physical abnormalities on exam. MG 3D Diag Mammo W/Cad HOMER Bilateral CC and MLO view(s) were taken. XCCL view(s) were taken of the left breast. Prior study comparison: January 12, 2020, bilateral MG 3d diag mammo w/cad HOMER. December 26, 2018, bilateral MG 3d diag mammo w/cad HOMER. The breast tissue is heterogeneously dense. This may lower the sensitivity of mammography. Right biopsy clips. Bilateral post operative, no change since prior. These results were verbally communicated with the patient and result sheet given to the patient on 01/13/21. ASSESSMENT: Benign, BI-RAD 2 RECOMMENDATION: Follow-up diagnostic mammogram of both breasts in 1 year. Manage on a clinical basis with regard to left axillary palpable reported as old.
== END | disposition home or self-care (01) ==
LOC: RADMAMWWP 10:19
PROVIDERS: ATTEND Internal Medicine Hematology & Oncology
DX: R92.2 Inconclusive mammogram (principal); Z85.3 Personal history of malignant neoplasm of breast; Z80.3 Family history of malignant neoplasm of breast
CPT/HCPCS: 77066; G0279; 77062

== ENCOUNTER → 2021-05-02 | Outpatient (CLI) | payer MEDICARE ==
[2021-05-02 19:49] LABS: Basophils # (A) 0.03 X 10*3/uL (0.00-0.10); Basophils % (A) 0.7 %; Eosinophils % (A) 2.4 %; HCT 40.8 % (37.2-46.3); HGB 12.7 g/dL (12.0-15.0); MCH 27.5 pg (27.0-32.0); MCHC 31.1 g/dL (32.0-37.0); MCV 88.3 fL (80.0-97.0); Mean Platelet Volume 10.3 fL (9.5-12.2); Monocytes # (A) 0.44 X 10*3/uL (0.20-1.00); Monocytes % (A) 10.4 %; Neutrophils # (A) 2.55 X 10*3/uL (1.80-7.70); Neutrophils % (A) 60.3 %; Platelet Count 327 X 10*3/uL (140-440); RBC 4.62 X 10*6/uL (4.10-5.20); RDW 14.3 % (11.5-14.5); WBC 4.23 X 10*3/uL (4.50-10.00)
[2021-05-02 20:52] LABS: ALT 17 U/L (8-44); AST 18 U/L (13-35); African American GFR (CKD) 108.2 (60.0-200.0); Albumin 4.6 g/dL (3.8-4.9); Albumin/Globulin Ratio 2.04 (1.60-3.17); Alkaline Phosphatase 92 U/L (41-126); BUN/Creat Ratio 39.93 Ratio (12.00-20.00); Blood Urea Nitrogen 22.2 mg/dL (9.0-27.0); Calcium 9.5 mg/dL (8.7-10.3); Chloride 102 mmol/L (96-109); Chol/HDL Ratio 3.43 Ratio; Creatine Kinase 58 U/L (26-186); Globulin 2.2 g/dL (1.6-3.3); Glucose 88 mg/dL (70-110); LDL Cholesterol,Calculated 145.6 mg/dL (0.0-131.0); Non-African American GFR(CKD) 93.4 (60.0-200.0); Potassium 5.3 mmol/L (3.5-5.5); Sodium 141 mmol/L (135-145); Total Protein 6.8 g/dL (6.2-8.2)
== END | disposition home or self-care (01) ==
LOC: LABWHC1 11:28
PROVIDERS: ATTEND Internal Medicine Cardiovascular Disease
DX: Z00.01 Encounter for general adult medical examination with abnormal findings (principal); Z13.228 Encounter for screening for other metabolic disorders; E78.5 Hyperlipidemia, unspecified; K21.9 Gastro-esophageal reflux disease without esophagitis
CPT/HCPCS: 36415; 80053; 80061; 82550; 85025

== ENCOUNTER 2021-09-29 19:20 | Emergency (ER) | payer MEDICARE ==
[2021-09-29 19:40] VITALS: TEMP 97.2
[2021-09-29] MEDS ORDERED: ONDANSETRON 4 MG/2 ML VIAL IVP STA (21:28)
[2021-09-29] MEDS ORDERED: SODIUM CHLORIDE 0.9% 1,000 ML IV STA (21:28)
--- NOTE | 2021-09-29 22:19 | XR ---
EXAMINATION TYPE: XR chest 2V DATE OF EXAM: 09/29/2021 COMPARISON: 01/06/2012 HISTORY: Cough TECHNIQUE: 2 views FINDINGS: Heart and mediastinum are normal. Lungs are clear. Diaphragm is normal. Bony thorax is inta ct. There are clips at the left and right breast. No pleural effusion. IMPRESSION: No active cardiopulmonary disease. No adverse change.
[2021-09-29 23:31] LABS: African American GFR (CKD) >90 (>60 ml/min/1.73 sqM); Anion Gap 5 mmol/L; Blood Urea Nitrogen 11 mg/dL (7-17); Calcium 8.4 mg/dL (8.4-10.2); Carbon Dioxide 27 mmol/L (22-30); Chloride 102 mmol/L (98-107); Glucose 95 mg/dL (74-99); Non-African American GFR(CKD) >90 (>60 ml/min/1.73 sqM); Potassium 3.5 mmol/L (3.5-5.1); Sodium 134 mmol/L (137-145)
[2021-09-29 23:36] LABS: HCT 37.7 % (34.0-46.0); MCH 30.7 pg (25.0-35.0); MCHC 34.6 g/dL (31.0-37.0); MCV 88.7 fL (80.0-100.0); Mean Platelet Volume 14.7; RBC 4.25 m/uL (3.80-5.40); RDW 13.8 % (11.5-15.5); WBC 3.1 k/uL (3.8-10.6)
--- NOTE | 2021-09-30 00:07 | ED ---
General Adult HPI - General Chief complaint: Recheck/Abnormal Lab/Rx Stated complaint: Dehydration, Headache, Sorethroat, Congestion Time Seen by Provider: 09/29/21 21:13 Source: patient, RN notes reviewed Mode of arrival: ambulatory Limitations: no limitations - History of Present Illness Initial comments: 71-year-old female presents to the emergency department for evaluation of complaints including sore throat, fatigue, and "feeling dehydrated." Patient states she has been doing a fair amount of house cleaning in a warm environment the past 3-4 days and thinks that she has not been drinking enough water. States she has also had some congestion and sore throat that she attributes to dirt and dust exposure as well as cleaning products. Patient reports having felt similar in the past and improves markedly with IV fluids. She denies fever, chills, chest pain, shortness of breath, difficulty breathing, abdominal pain, nausea, vomiting, diarrhea, dysuria, or hematuria. - Related Data Home Medications Medication Instructions Recorded Confirmed Omeprazole [PriLOSEC] 20 mg PO DAILY 09/07/17 12/17/20 Biotin 10,000 mcg PO DAILY 12/12/20 12/17/20 Cholecalciferol (Vitamin D3) 125 mcg PO DAILY 12/12/20 12/17/20 [Vitamin D3 (125 MCG = 5,000 IU)] Cyanocobalamin (Vitamin B-12) 1,000 mcg PO DAILY 12/12/20 12/17/20 [Vitamin B-12] Docusate [Colace] 100 mg PO HS 12/12/20 12/17/20 Multivitamins, Thera [Multivitamin 1 tab PO DAILY 12/12/20 12/17/20 (formulary)] Previous Rx's Medication Instructions Recorded Apixaban [Eliquis] 2.5 mg PO BID #60 tab 12/18/20 Docusate [Colace] 100 mg PO DAILY #30 cap 12/18/20 Ferrous Sulfate [Feosol] 325 mg PO BID #60 tab 12/18/20 HYDROcodone/APAP 7.5-325MG [[place] 1 each PO Q6HR PRN #28 tab 12/18/20 7.5] Allergies Allergy/AdvReac Type Severity Reaction Status Date / Time diphenhydramine Allergy agitated Verified 09/29/21 19:40 [From Benadryl] adhesive tape AdvReac blisters Verified 09/29/21 19:40 topical antiseptic Allergy Itching Uncoded 09/29/21 19:40 Review of Systems ROS Statement: Those systems with pertinent positive or pertinent negative responses have been documented in the HPI. ROS Other: All systems not noted in ROS Statement are negative. Past Medical History Past Medical History: Cancer Additional Past Medical History / Comment(s): Hx. left breast cancer 2011 History of Any Multi-Drug Resistant Organisms: None Reported Past Surgical History: Breast Surgery, Hysterectomy, Orthopedic Surgery Additional Past Surgical History / Comment(s): left breast lumpectomy with chemo. and radiation, prolapsed bowel sugery, right hip replacement. rt breast "partial mastectomy", brenda cataracts, TLHA dec 17 Past Anesthesia/Blood Transfusion Reactions: No Reported Reaction Past Psychological History: No Psychological Hx Reported Smoking Status: Never smoker Past Alcohol Use History: None Reported Past Drug Use History: None Reported General Exam Limitations: no limitations (Well-developed, well-nourished female in no acute distress. Initial temperature 97.2, pulse 92, respirations 18, blood pressure 154/88, pulse ox 98% on room air.) General appearance: alert, in no apparent distress Head exam: Present: atraumatic, normocephalic, normal inspection Eye exam: Present: normal appearance, PERRL, EOMI. Absent: scleral icterus, conjunctival injection, periorbital swelling ENT exam: Present: mucous membranes dry Neck exam: Present: normal inspection, full ROM. Absent: tenderness, meningismus, lymphadenopathy Respiratory exam: Present: normal lung sounds bilaterally. Absent: respiratory distress, wheezes, rales, rhonchi, stridor, chest wall tenderness Cardiovascular Exam: Present: regular rate, normal rhythm, normal heart sounds. Absent: systolic murmur, diastolic murmur, rubs, gallop, clicks GI/Abdominal exam: Present: soft, normal bowel sounds. Absent: distended, tenderness, guarding, rebound, rigid Back exam: Absent: CVA tenderness (R), CVA tenderness (L) Neurological exam: Present: alert, oriented X3, CN II-XII intact, normal gait Psychiatric exam: Present: normal affect, normal mood Skin exam: Present: warm, dry, intact, normal color. Absent: rash Course Vital Signs 09/29/21 19:38 Temperature 97.2 F L Pulse Rate 92 Respiratory 18 Rate Blood Pressure 154/88 O2 Sat by Pulse 98 Oximetry - Reevaluation(s) Reevaluation #1: 09/30/21 00:00 Discussed results of laboratory studies the patient including positive Covid test. Did offer monoclonal antibody infusion, however she declines stating that she does not want any treatment for Covid and she feels much better after the fluids. Return parameters were discussed in detail. Patient verbalizes understanding. Medical Decision Making - Medical Decision Making This is a 71-year-old female with a past medical history of breast cancer who presents to the emergency department for evaluation of "feeling dehydrated" and congestion. Upon exam, patient is well-appearing and in no acute distress. Vital signs are stable. Physical exam findings are unremarkable. Laboratory studies were obtained showing a sodium 134 and a positive Covid test. Chest x- ray was negative. Patient was given a liter of IV fluids and Zofran for a brief episode of nausea. Patient reports improvement. Monoclonal antibodies were offered though patient did decline this. Instructed to increase fluids and follow-up with her PCP. Return parameters discussed in detail. Patient verbalizes understanding and agrees with this plan. Attending: Brian. - Lab Data Result diagrams: 09/29/21 22:40 09/29/21 23:10 Lab Results 09/29/21 09/29/21 09/29/21 Range/Units 22:40 22:54 23:10 WBC 3.1 L (3.8-10.6) k/uL RBC 4.25 (3.80-5.40) m/uL Hgb 13.0 (11.4-16.0) gm/dL Hct 37.7 (34.0-46.0) % MCV 88.7 (80.0-100.0) fL MCH 30.7 (25.0-35.0) pg MCHC 34.6 (31.0-37.0) g/dL RDW 13.8 (11.5-15.5) % Plt Count 159 (150-450) k/uL MPV 14.7 Sodium 134 L (137-145) mmol/L Potassium 3.5 (3.5-5.1) mmol/L Chloride 102 (98-107) mmol/L Carbon Dioxide 27 (22-30) mmol/L Anion Gap 5 mmol/L BUN 11 (7-17) mg/dL Creatinine 0.60 (0.52-1.04) mg/dL Est GFR (CKD-EPI)AfAm >90 (>60 ml/min/1.73 sqM) Est GFR (CKD-EPI)NonAf >90 (>60 ml/min/1.73 sqM) Glucose 95 (74-99) mg/dL Calcium 8.4 (8.4-10.2) mg/dL Coronavirus (PCR) Detected A (Not Detectd) - Radiology Data Radiology results: report reviewed, image reviewed Two-view chest x-ray was obtained. Report was reviewed in its entirety. Impression per Dr. Stevenson is no active cardiopulmonary disease. No adverse change. Disposition Clinical Impression: COVID-19 Disposition: HOME SELF-CARE Condition: Stable Instructions (If sedation given, give patient instructions): Coronavirus Disease 2019 (COVID-19) Additional Instructions: Alternate Tylenol and Motrin if needed for fever or body aches. Increase intake of fluids. You should isolate for 5 days, then wear a mask for the subsequent 5 days when out in public. Follow-up with your PCP for a recheck in the next 1-2 days. This may be done via telephone or video visit. Return to the emergency department with any new, worsening, or concerning symptoms including chest pain, difficulty breathing, or shortness of breath. Is patient prescribed a controlled substance at d/c from ED?: No Referrals: Danielle Veloz MD [Primary Care Provider] - 1-2 days Time of Disposition: 00:07
[2021-09-30 00:33] VITALS: BP 119/78; PULSE 78; RESP 16
[2021-09-30 00:36] LABS: Band Neutrophils % 1 %; Eosinophils # (M) 0.03 k/uL (0-0.7); Lymphocytes # (M) 0.62 k/uL (1.0-4.8); Monocytes # (M) 0.59 k/uL (0-1.0); Neutrophils % (M) 59 %; Nucleated Red Blood Cells 0 /100 WBC (0-0); Total Cells Counted 100
== END 2021-09-30 00:32 | disposition home or self-care (01) ==
LOC: EC 19:20
DX: U07.1 COVID-19 (principal); Z88.8 Allergy status to other drugs, medicaments and biological substances; Z91.048 Other nonmedicinal substance allergy status
CPT/HCPCS: 36415; 80048; 85025; 87635; 71046; 99284; 96374; 96361; J2405

== ENCOUNTER → 2022-02-11 | Outpatient (CLI) | payer MEDICARE ==
--- NOTE | 2022-02-12 18:57 | MM ---
Reason for Exam: Hx of breast cancer, conservation therapy. Last mammogram was performed 1 year(s) and 1 month(s) ago. Patient History: Menarche at age 11. First Full-Term at age 18. Hysterectomy at age 24. Postmenopausal. Breast cancer, right, age 67. Other cancer. Breast cancer, left, age 60. Estrogen, starting at age 48 for 6 years, 6 months. 07/2011, Lumpectomy on the Left side. 09/14/2017, Malignant Core Biopsy on the right side. 04/14/2002, Benign Stereotactic Core Biopsy on the right side. 06/26/1998, Benign Stereotactic Core Biopsy on the right side. 2011, Chemotherapy. 2011, Radiation Therapy on the left side. Maternal aunt had breast cancer. Prior Study Comparison: 12/26/2018 Bilateral Diagnostic Mammogram, [facility]. 01/12/2020 Bilateral Diagnostic Mammogram, [facility]. 01/13/2021 Bilateral Diagnostic Mammogram, [facility]. Tissue Density: The breast tissue is heterogeneously dense. This may lower the sensitivity of mammography. Findings: Analyzed By CAD. Postsurgical and posttreatment change both breasts. Benign vascular and some oil cyst calcifications are redemonstrated on both sides. No significant change from prior exams. Overall Assessment: Benign, BI-RAD 2 Management: Screening Mammogram of both breasts in 1 year. 1. Patient should continue monthly self breast exams. 2. A clinical breast exam by your physician is recommended on an annual basis. 3. This exam should not preclude additional follow-up of suspicious palpable abnormalities. Electronically signed and approved by: Parul Etienne M.D. Radiologist
== END | disposition home or self-care (01) ==
LOC: RADMAMWWP 09:51
PROVIDERS: ATTEND Internal Medicine Hematology & Oncology
DX: Z12.31 Encounter for screening mammogram for malignant neoplasm of breast (principal); Z78.0 Asymptomatic menopausal state; Z80.3 Family history of malignant neoplasm of breast; Z85.3 Personal history of malignant neoplasm of breast; Z98.890 Other specified postprocedural states
CPT/HCPCS: 77063; 77067

== ENCOUNTER → 2022-10-21 | Outpatient (CLI) | payer MEDICARE ==
--- NOTE | 2022-10-21 13:22 | MM ---
Reason for Exam: Hx of breast cancer, conservation therapy. Last screening mammogram was performed 8 month(s) ago. Patient History: Menarche at age 11. First Full-Term at age 18. Hysterectomy at age 24. Postmenopausal. Breast cancer, right, age 67. Other cancer. Breast cancer, left, age 60. Estrogen, starting at age 48 for 6 years, 6 months. 07/2011, Lumpectomy on the Left side. 09/14/2017, Malignant Core Biopsy on the right side. 04/14/2002, Benign Stereotactic Core Biopsy on the right side. 06/26/1998, Benign Stereotactic Core Biopsy on the right side. 2011, Chemotherapy. 2011, Radiation Therapy on the left side. Maternal aunt had breast cancer. Prior Study Comparison: 01/12/2020 Bilateral Diagnostic Mammogram, [facility]. 01/13/2021 Bilateral Diagnostic Mammogram, [facility]. 02/11/2022 Bilateral MG 3D screening mammo w/cad, [facility]. Tissue Density: Right: The breast tissue is heterogeneously dense. This may lower the sensitivity of mammography. Findings: Analyzed By CAD. Postsurgical changes with surgical clips and biopsy clip. No new suspicious masses, calcifications or distortions. Thickening correlate with patient's area of pain. Overall Assessment: Incomplete: need additional imaging evaluation, BI-RAD 0 Management: Diagnostic Breast Ultrasound of the right breast. Results were given to the patient verbally at the time of exam. Patient should continue monthly self-breast exams. A clinical breast exam by your physician is recommended on an annual basis. This exam should not preclude additional follow-up of suspicious palpable abnormalities. Note on Adrianna scores and lifetime risk: 1. A Adrianna score greater than 3% is considered moderate risk. If this is the case, consider specialist referral to assess eligibility for a risk reducing agent. 2. If overall lifetime risk for the development of breast cancer is 20% or higher, the patient may qualify for future screening with alternating mammogram and breast MRI. Electronically signed and approved by: Tyrone Enriquez DO
--- NOTE | 2022-10-21 13:59 | USB ---
Reason for Exam: Clinical finding. Patient History: Menarche at age 11. First Full-Term at age 18. Hysterectomy at age 24. Postmenopausal. Breast cancer, right, age 67. Other cancer. Breast cancer, left, age 60. Estrogen, starting at age 48 for 6 years, 6 months. 07/2011, Lumpectomy on the Left side. 09/14/2017, Malignant Core Biopsy on the right side. 04/14/2002, Benign Stereotactic Core Biopsy on the right side. 06/26/1998, Benign Stereotactic Core Biopsy on the right side. 2011, Chemotherapy. 2011, Radiation Therapy on the left side. Maternal aunt had breast cancer. Technique: Method: Targeted. Prior Study Comparison: 01/12/2020 Bilateral Diagnostic Mammogram, [facility]. 01/13/2021 Bilateral Diagnostic Mammogram, [facility]. 02/11/2022 Bilateral MG 3D screening mammo w/cad, [facility]. Findings: The area of palpable concern of the right breast was scanned. Imaged: Ultrasound imaging of: All 4 quadrants, the retroareolar region and axilla. No finding to correlate with patient's pain. No evidence for organizing fluid collection or mass. Overall Assessment: Negative, BI-RAD 1 Management: Screening Mammogram of both breasts in 1 year. A clinical breast exam by your physician is recommended on an annual basis and results should be correlated with mammographic findings. This exam should not preclude additional follow-up of suspicious palpable abnormalities. Results were given to the patient verbally at the time of exam. Electronically signed and approved by: Tyrone Enriquez DO
== END | disposition home or self-care (01) ==
LOC: RADMAMWWP 12:51
PROVIDERS: ATTEND Internal Medicine
DX: R92.8 Other abnormal and inconclusive findings on diagnostic imaging of breast (principal); Z78.0 Asymptomatic menopausal state; Z85.3 Personal history of malignant neoplasm of breast; Z80.3 Family history of malignant neoplasm of breast
CPT/HCPCS: 77061; 77065

== ENCOUNTER → 2023-03-02 | Outpatient (CLI) | payer MEDICARE ==
--- NOTE | 2023-03-02 14:06 | MM ---
Reason for Exam: Clinical finding. Last mammogram was performed 1 year(s) and 1 month(s) ago. Indicated Problems: Palpable abnormality of the right side for 2 Week(s). Patient History: Menarche at age 11. First Full-Term at age 18. Hysterectomy at age 24. Postmenopausal. Breast cancer, right, age 67. Other cancer. Breast cancer, left, age 60. Estrogen, starting at age 48 for 6 years, 6 months. 07/2011, Lumpectomy on the Left side. 09/14/2017, Malignant Core Biopsy on the right side. 04/14/2002, Benign Stereotactic Core Biopsy on the right side. 06/26/1998, Benign Stereotactic Core Biopsy on the right side. 2011, Chemotherapy. 2011, Radiation Therapy on the left side. Maternal aunt had breast cancer. Prior Study Comparison: 09/03/2014 Bilateral Diagnostic Mammogram, [facility]. 09/21/2016 Bilateral Diagnostic Mammogram, [facility]. 09/01/2017 Bilateral Diagnostic Mammogram, [facility]. 09/01/2017 Right Diagnostic Ultrasound, [facility]. 12/26/2018 Bilateral Diagnostic Mammogram, [facility]. 01/12/2020 Bilateral Diagnostic Mammogram, [facility]. 01/13/2021 Bilateral Diagnostic Mammogram, [facility]. 02/11/2022 Bilateral MG 3D screening mammo w/cad, [facility]. 10/21/2022 Right US breast limited RT, [facility]. 10/21/2022 Right MG 3D diag mammo w/cad RT, [facility]. Tissue Density: The breast tissue is heterogeneously dense. This may lower the sensitivity of mammography. Findings: Analyzed By CAD. Postsurgical and posttreatment change of bilateral breasts. Benign vascular and a few ill cyst calcifications are redemonstrated. Palpable marker indicates the largest patient palpated area within the right breast superiorly. Nodular asymmetric density along the retroareolar plane on the right anterior to middle depth does not persist on additional views. No significant change from prior exams. Overall Assessment: Incomplete: need additional imaging evaluation, BI-RAD 0 Management: Diagnostic Breast Ultrasound of the right breast. Electronically signed and approved by: Parul Etienne M.D. Radiologist
--- NOTE | 2023-03-02 14:27 | USB ---
Reason for Exam: Clinical finding. Patient History: Menarche at age 11. First Full-Term at age 18. Hysterectomy at age 24. Postmenopausal. Breast cancer, right, age 67. Other cancer. Breast cancer, left, age 60. Estrogen, starting at age 48 for 6 years, 6 months. 07/2011, Lumpectomy on the Left side. 09/14/2017, Malignant Core Biopsy on the right side. 04/14/2002, Benign Stereotactic Core Biopsy on the right side. 06/26/1998, Benign Stereotactic Core Biopsy on the right side. 2011, Chemotherapy. 2011, Radiation Therapy on the left side. Maternal aunt had breast cancer. Technique: Method: Whole Breast Handheld. Prior Study Comparison: 01/13/2021 Bilateral Diagnostic Mammogram, [facility]. 02/11/2022 Bilateral MG 3D screening mammo w/cad, [facility]. 10/21/2022 Right MG 3D diag mammo w/cad RT, [facility]. Findings: The whole breast of the right breast, the axilla of the right breast and the retroareolar of the right breast were scanned. A complete US of all four quadrants of the breast , axilla, and retro-areolar region were reviewed. There are multiple round hypoechoic to cystic appearing lesions throughout the breast, largest measuring 7 mm and particularly located at the patient's largest palpable site, 12:00 position 8 cm from the nipple. These appear cystic but with a faint posterior shadowing. Noncalcified oil cysts are favored. Stability should be confirmed at a 3 month follow-up. No definite suspicious status solid mass. No axillary lymphadenopathy. Overall Assessment: Probably benign, BI-RAD 3 Management: Diagnostic Breast Ultrasound of the right breast in 3 months. For suspected multiple noncalcified palpable oil cysts in a patient with history of bilateral lumpectomies. A clinical breast exam by your physician is recommended on an annual basis and results should be correlated with mammographic findings. This exam should not preclude additional follow-up of suspicious palpable abnormalities. Results were given to the patient verbally at the time of exam. Electronically signed and approved by: Parul Etienne M.D. Radiologist
== END | disposition home or self-care (01) ==
LOC: RADMAMWWP 12:58
PROVIDERS: ATTEND Internal Medicine Hematology & Oncology
DX: C50.111 Malignant neoplasm of central portion of right female breast (principal); R92.333 Mammographic heterogeneous density, bilateral breasts; Z80.3 Family history of malignant neoplasm of breast; Z78.0 Asymptomatic menopausal state
CPT/HCPCS: 77062; 77066

== ENCOUNTER → 2023-05-06 | Outpatient (CLI) | payer MEDICARE ==
--- NOTE | 2023-05-06 14:13 | MM ---
Reason for Exam: Follow-up at short interval from prior study. Last screening mammogram was performed 2 month(s) ago. Patient History: Menarche at age 11. First Full-Term at age 18. Hysterectomy at age 24. Postmenopausal. Breast cancer, right, age 67. Other cancer. Breast cancer, left, age 60. Estrogen, starting at age 48 for 6 years, 6 months. 07/2011, Lumpectomy on the Left side. 09/14/2017, Malignant Core Biopsy on the right side. 04/14/2002, Benign Stereotactic Core Biopsy on the right side. 06/26/1998, Benign Stereotactic Core Biopsy on the right side. 2011, Chemotherapy. 2011, Radiation Therapy on the left side. Maternal aunt had breast cancer. Prior Study Comparison: 02/11/2022 Bilateral MG 3D screening mammo w/cad, [facility]. 10/21/2022 Right MG 3D diag mammo w/cad RT, [facility]. 03/02/2023 Bilateral MG 3D diag mammo w/cad [facility], [facility]. Tissue Density: Right: The breast tissue is heterogeneously dense. This may lower the sensitivity of mammography. Findings: Analyzed By CAD. Postoperative distortion right breast. Vascular calcifications noted. No evidence for mass or suspicious cluster of microcalcifications. Ultrasound is recommended. Overall Assessment: Incomplete: need additional imaging evaluation, BI-RAD 0 Management: Diagnostic Breast Ultrasound of the right breast. . Results were given to the patient verbally at the time of exam. Patient should continue monthly self-breast exams. A clinical breast exam by your physician is recommended on an annual basis. This exam should not preclude additional follow-up of suspicious palpable abnormalities. Note on Adrianna scores and lifetime risk: 1. A Adrianna score greater than 3% is considered moderate risk. If this is the case, consider specialist referral to assess eligibility for a risk reducing agent. 2. If overall lifetime risk for the development of breast cancer is 20% or higher, the patient may qualify for future screening with alternating mammogram and breast MRI. Electronically signed and approved by: London Petersen M.D. Radiologis
--- NOTE | 2023-05-06 15:12 | USB ---
Reason for Exam: Follow-up at short interval from prior study. Patient History: Menarche at age 11. First Full-Term at age 18. Hysterectomy at age 24. Postmenopausal. Breast cancer, right, age 67. Other cancer. Breast cancer, left, age 60. Estrogen, starting at age 48 for 6 years, 6 months. 07/2011, Lumpectomy on the Left side. 09/14/2017, Malignant Core Biopsy on the right side. 04/14/2002, Benign Stereotactic Core Biopsy on the right side. 06/26/1998, Benign Stereotactic Core Biopsy on the right side. 2011, Chemotherapy. 2011, Radiation Therapy on the left side. Maternal aunt had breast cancer. Prior Study Comparison: 02/11/2022 Bilateral MG 3D screening mammo w/cad, [facility]. 10/21/2022 Right MG 3D diag mammo w/cad RT, [facility]. 03/02/2023 Bilateral MG 3D diag mammo w/cad [facility], [facility]. 03/02/2023 Right US breast RT, [facility]. Findings: The whole breast of the right breast, the axilla of the right breast and the retroareolar of the right breast were scanned. Complex cystic lesion right 7:00 position is unchanged at 1.9 x 0.5 cm. Additional small complex cystic lesion right 3:00 position 3 cm from the nipple measures 4 mm and is stable. Area of shadowing at the right 12:00 position corresponds to a vascular calcifications. No concerning solid masses are seen. Additional simple cyst at the right 4:00 position 5 cm from the nipple measuring 5 mm. Continued follow-up is recommended at 4 months.. Overall Assessment: Probably benign, BI-RAD 3 Management: Diagnostic Breast Ultrasound of the right breast in 4 months. A clinical breast exam by your physician is recommended on an annual basis and results should be correlated with mammographic findings. This exam should not preclude additional follow-up of suspicious palpable abnormalities. Results were given to the patient verbally at the time of exam. Electronically signed and approved by: London Petersen M.D. Radiologis
== END | disposition home or self-care (01) ==
LOC: RADMAMWWP 13:51
PROVIDERS: ATTEND Internal Medicine Hematology & Oncology
DX: N60.11 Diffuse cystic mastopathy of right breast (principal); R92.331 Mammographic heterogeneous density, right breast; Z85.3 Personal history of malignant neoplasm of breast; Z80.3 Family history of malignant neoplasm of breast; Z78.0 Asymptomatic menopausal state
CPT/HCPCS: 77061; 77065

== ENCOUNTER → 2023-06-03 | Outpatient (CLI) | payer MEDICARE ==
--- NOTE | 2023-06-03 18:56 | BD ---
EXAMINATION TYPE: Axial Bone Density DATE OF EXAM: 06/03/2023 CLINICAL HISTORY: 72 years old Female. ICD-10 CODE: N95.8 OTHER SPECIFIED MENOPAUSAL AND PERIMENOPAU SA Height: 65 Weight: 152.3 FRAX RISK QUESTIONS: Alcohol (3 or more units per day): no Family History (Parent hip fracture): mother Glucocorticoids (More than 3mos): no History of Fracture in Adulthood: foot Secondary Osteoporosis: 1. Type 1 Diabetes: no 2. Hyperthyroidism: no 3. Menopause before 45: no 4. Malnutrition: no 5. Chronic liver disease: no Rheumatoid Arthritis: no Current Tobacco Use: no RISK FACTORS HISTORY OF: Hip Fracture (Right/Left): no Spine Fracture: no History of Wrist Fracture: no Surgery to Spine/Hip(right/left)/Wrist (right/left): Bilateral hip replacements When: 2012 and 2020 MEDICATIONS: Thyroid Medications: no Osteoporosis Medications: no EXAM MEASUREMENTS: Bone mineral densitometry was performed using the Dine perfect System. Bone mineral density as measured about the Lumbar spine is: ----- L1-L4(G/cm2): 1.285 T Score Values are as follows: ----- L1: 0.8 ----- L2: 0.9 ----- L3: 1.5 ----- L4: 0.3 ----- L1-L4: 0.9 Z Score Values are as follows: ----- L1: 2.4 ----- L2: 2.6 ----- L3: 3.1 ----- L4: 1.9 ----- L1-L4: 2.5 Bone mineral density has: increased 2.6 % since study of: 05/04/2012 Bone mineral density about the L Wrist (g/cm2): 0.691 T Score values are as follows: -----Dist. R+U: 2.1 -----Prox. R+U: -0.4 -----Radius total: 0.3 Z Score values are as follows: -----Dist. R+U: 4.4 -----Prox. R+U: 1.9 -----Radius total: 2.5 Baseline for forearm FRAX%s: The graph provided illustrates a % chance for a major osteoporotic fx and a % chance for the hips probability for fx in 10 years time. No FRAX given due to bilateral hip replacements. IMPRESSION: Normal (Values between +1 and -1 indicate normal bone mass). Consider repeating this study in 5 year s or sooner if there is some new clinical indication. NOTE: T-SCORE=SD OF THE YOUNG ADULT MEAN.
== END | disposition home or self-care (01) ==
LOC: RADBDWWP 13:01
PROVIDERS: ATTEND Internal Medicine
DX: N95.8 Other specified menopausal and perimenopausal disorders (principal)
CPT/HCPCS: 77080

== ENCOUNTER → 2024-06-12 | Outpatient (CLI) | payer MEDICARE ==
--- NOTE | 2024-06-12 12:19 | XR ---
EXAMINATION TYPE: XR foot complete LT DATE OF EXAM: 06/12/2024 12:13 PM COMPARISON: None. CLINICAL INDICATION: Female, 73 years old with history of [id number] LT FOOT PAIN, pain TECHNIQUE: Frontal, lateral, and oblique images of the left foot are obtained. FINDINGS: There is no acute fracture/dislocation evident in the left foot. Degenerative changes firs t metatarsal phalangeal joint with mild hallux valgus deformity seen. The overlying soft tissue appea rs unremarkable. IMPRESSION: There is no acute fracture or dislocation in the left foot. [facility], , 06/12/2024 12:16 PM
== END | disposition home or self-care (01) ==
LOC: RADXRYALE 12:02
PROVIDERS: ATTEND Internal Medicine
DX: M19.072 Primary osteoarthritis, left ankle and foot (principal); M20.12 Hallux valgus (acquired), left foot